=== PATIENT | female | born 1975 | race Two or more races ===

== ENCOUNTER → 2024-06-10 | Outpatient (CLI) | payer OTHER, SELFPAY ==
--- NOTE | 2024-06-10 14:00 | XR_ITS ---
Examination: Breast ultrasound complete, bilateral Date and time of exam: June 10, 2024 1459 hours INDICATIONS: Dense breast architecture on screening mammograms Technique: Real-time grayscale ultrasonographic imaging bilateral breasts, including all 4 quadrants as well as nipple retroareolar and axillary regions. Findings: Sonographic images right breast 7:00 cyst 2 x 3 mm No solid nodules Sonographic images left breast 3:00 cyst 7 x 4 mm No solid nodules Small left breast cyst IMPRESSION: BI-RADS Category 2: Benign findings
--- NOTE | 2024-06-10 15:00 | XR_ITS ---
Examination: Diagnostic digital mammography, bilateral Computer aided detection 3-D breast Tomosynthesis, bilateral Date and time of exam: June 10, 2024 1537 hours Comparison March 06, 2022 Benign calcifications INDICATIONS: Family history breast cancer Technique: Nonmagnified MLO, CC views of the breasts to been obtained, reconstructed from 3-D Tomosynthesis images. R2 computer aided detection program utilized for evaluation of suspicious masses and/or abnormal calcifications. 3-D Tomosynthesis images obtained. Findings: Scattered areas of fibroglandular density 4 mm circumscribed nodule 12:00 position left breast Impression: BI-RADS Category 0: Incomplete: Need additional imaging evaluation 4 mm circumscribed nodule 12:00 position left breast, recommend follow-up spot tomographic views of this mass as well as left breast sonography to complete the workup.
== END | disposition home or self-care (01) ==
LOC: CDIM 14:24
PROVIDERS: Referring Provider Student in an Organized Health Care Education/Training Program; Visit Provider Student in an Organized Health Care Education/Training Program
DX: N63.25 Unspecified lump in the left breast, overlapping quadrants (principal); Z87.898 Personal history of other specified conditions
CPT/HCPCS: 76641; 77062; 77066; G0279

== ENCOUNTER → 2024-08-21 | Outpatient (CLI) | payer OTHER, SELFPAY ==
--- NOTE | 2024-08-21 09:15 | XR_ITS ---
Examination: Breast ultrasound, unilateral, left complete Date and time of exam: August 21, 2024 0956 hours INDICATIONS: Mammogram June 10 2024 4 mm nodule 12:00 position left breast, bilateral breast sonography June 10, 2024 benign breast cysts Technique: Real-time samaniego scale ultrasonographic imaging performed left breast including all 4 quadrants as well as nipple retroareolar and axillary region. Findings: 12:00 nodule lobular margins 6 x 6 mm 3:00 cyst 6 x 4 mm 5:00 cyst 4 x 4 millimeter, smaller cyst IMPRESSION: BI-RADS Category 3: Probably benign findings One additional 6 month left breast sonogram follow-up is needed to document stability of solid nodule 12:00 position left breast
--- NOTE | 2024-08-21 09:45 | XR_ITS ---
Examination: Diagnostic digital mammography, unilateral, left Computer aided detection 3-D breast Tomosynthesis, unilateral Date and time of exam: August 21, 2024 0947 hours INDICATIONS: Mammogram June 10, 2024 4 mm circumscribed nodule 12:00 position left breast Technique: Nonmagnified MLO, CC views of the left breast have been obtained, reconstructed from 3-D Tomosynthesis images. R2 computer aided detection program utilized for evaluation of suspicious masses and/or abnormal calcifications. 3-D Tomosynthesis images obtained. Findings: Scattered areas of fibroglandular density Spot compression views demonstrate no suspicious mass Impression: BI-RADS category 2: Benign findings Return to yearly follow-up mammography
== END | disposition home or self-care (01) ==
LOC: CDIM 09:38
PROVIDERS: PCP Registered Nurse; Referring Provider Registered Nurse; Visit Provider Registered Nurse
DX: R92.322 Mammographic fibroglandular density, left breast (principal); N63.25 Unspecified lump in the left breast, overlapping quadrants
CPT/HCPCS: 76641; 77061; 77065; G0279